=== PATIENT | female | born 1980 | race American Indian/Alaskan Native ===

== ENCOUNTER 2016-11-25 13:04 | Emergency (ER) | payer MEDICAID ==
[2016-11-25 13:27] VITALS: BP 137/79; PULSE 86; RESP 16; TEMP 98.9; O2SAT 100
--- NOTE | 2016-11-25 13:56 | ED PDOC ---
HPI: CCC, URI, Sore Throat Time Seen by Provider: 11/25/16 13:33 Chief Complaint (Nursing): Cough, Cold, Congestion Chief Complaint (Provider): Cough, cold, congestion History Per: Patient History/Exam Limitations: no limitations Have you had recent travel within the past 21 days to any of the following countries: [place], [place], [place] or [place]?: No Onset/Duration Of Symptoms: Days (3) Current Symptoms Are (Timing): Still Present Location Of Pain: Throat Sick Contacts (Context): Family Member(s) Associated Symptoms: Sore Throat, Cough. denies: Fever, Chills Additional History Per: Patient Additional Complaint(s): 36yo female, presents to the ED for evaluation of cough, cold and congestion for the past 3 dyas. She also reports a sore throat, present for the past 4 days ; patient states her daughter has been diagnosed with bronchitis and she is concerned she might have been exposed. She denies any associated fever, chills, nausea or vomiting. She offers no additional medical complaints. Past Medical History Reviewed: Historical Data, Nursing Documentation, Vital Signs Vital Signs: Last Vital Signs Temp 98.9 F 11/25/16 13:23 Pulse 86 11/25/16 13:23 Resp 16 11/25/16 13:23 BP 137/79 11/25/16 13:23 Pulse Ox 100 11/25/16 13:59 - Medical History PMH: No Chronic Diseases - Surgical History Surgical History: No Surg Hx - Family History Family History: States: No Known Family Hx - Living Arrangements Living Arrangements: With Family - Social History Current smoker - smoking cessation education provided: No Alcohol: None Drugs: Denies - Home Medications Home Medications: Ambulatory Orders Medication Instructions Recorded Albuterol HFA [Ventolin HFA 90 1 puff IH Q4 PRN #1 unit 10/24/14 mcg/actuation (8 g)] Azithromycin [Zithromax Z-Raul] 250 mg PO DAILY #1 packet 10/24/14 - Allergies Allergies/Adverse Reactions: Allergies Allergy/AdvReac Type Severity Reaction Status Date / Time milk Allergy RASH Verified 11/25/16 13:23 Review of Systems Constitutional: Negative for: Fever, Chills ENT: Positive for: Throat Pain Respiratory: Positive for: Cough, Sputum Gastrointestinal: Negative for: Nausea, Vomiting Physical Exam - Reviewed Nursing Documentation Reviewed: Yes Vital Signs Reviewed: Yes - Physical Exam Appears: Positive for: Non-toxic, No Acute Distress Head Exam: Positive for: ATRAUMATIC, NORMAL INSPECTION, NORMOCEPHALIC Skin: Positive for: Warm Eye Exam: Positive for: Normal appearance ENT: Negative for: Pharyngeal Erythema, Tonsillar Exudate, Tonsillar Swelling Neck: Positive for: Supple Cardiovascular/Chest: Positive for: Regular Rate, Rhythm Respiratory: Positive for: Normal Breath Sounds. Negative for: Rhonchi, Wheezing, Respiratory Distress Neurologic/Psych: Positive for: Alert, Oriented - ECG O2 Sat by Pulse Oximetry: 100 (RA) Pulse Ox Interpretation: Normal Medical Decision Making Medical Decision Making: Time: 1330 Impression: Cough, cold congestion x 3 days Plan: -- Rapid strep Strep (-) Scribe Attestation: Documented by Tova Sterling acting as a scribe for CALIXTO Perez Provider Attestation: All medical record entries made by the Scribe were at my direction and personally dictated by me. I have reviewed the chart and agree that the record accurately reflects my personal performance of the history, physical exam, medical decision making, and the department course for this patient. I have also personally directed, reviewed, and agree with the discharge instructions and disposition. Disposition - Clinical Impression Clinical Impression: Viral illness - Patient ED Disposition Is Patient to be Admitted: No Counseled Patient/Family Regarding: Diagnosis, Need For Followup - Disposition Disposition: Routine/Home Disposition Time: 15:12 Condition: GOOD Instructions: Cold Symptoms (ED) Forms: [employer] (Armenian)
== END 2016-11-25 15:22 | disposition home or self-care (01) ==
LOC: H.ER 13:04
DX: B34.9 Viral infection, unspecified (principal)

== ENCOUNTER 2017-04-03 23:22 | Emergency (ER) | payer MEDICAID ==
[2017-04-03 23:35] VITALS: BP 118/76; PULSE 96; RESP 18; TEMP 98.5; O2SAT 97
--- NOTE | 2017-04-04 00:18 | ED PDOC ---
HPI: General Adult Time Seen by Provider: 04/03/17 23:37 Chief Complaint (Nursing): Cough, Cold, Congestion Chief Complaint (Provider): sore throat, congestion History Per: Patient Additional Complaint(s): 36-year-old female presents to emergency department with sore throat, cough post -tussive vomiting for 2 days. The patient denies any fever or chills. She states that her daughter was recently treated for bronchiolitis. PMD: none Past Medical History Reviewed: Historical Data, Nursing Documentation, Vital Signs Vital Signs: Last Vital Signs Temp 98.5 F 04/03/17 23:31 Pulse 96 H 04/03/17 23:31 Resp 18 04/03/17 23:31 BP 118/76 04/03/17 23:31 Pulse Ox 97 04/04/17 00:50 - Medical History PMH: No Chronic Diseases - Surgical History Other surgeries: breast augmentation, norwegian butt lift - Family History Family History: States: No Known Family Hx - Living Arrangements Living Arrangements: With Family - Social History Current smoker - smoking cessation education provided: No Alcohol: None Drugs: Denies - Home Medications Home Medications: Ambulatory Orders Medication Instructions Recorded Albuterol HFA [Ventolin HFA 90 1 puff IH Q4 PRN #1 unit 10/24/14 mcg/actuation (8 g)] Azithromycin [Zithromax Z-Raul] 250 mg PO DAILY #1 packet 10/24/14 Albuterol HFA [Ventolin HFA 90 1 puff IH ASDIR #1 unit 04/04/17 mcg/actuation (8 g)] Azithromycin [Zithromax] 250 mg PO DAILY #6 tab 04/04/17 Benzonatate 200 mg PO TID PRN #20 capsule 04/04/17 - Allergies Allergies/Adverse Reactions: Allergies Allergy/AdvReac Type Severity Reaction Status Date / Time milk Allergy RASH Verified 11/25/16 13:23 Review of Systems ROS Statement: Except As Marked, All Systems Reviewed And Found Negative Constitutional: Negative for: Fever, Chills Cardiovascular: Negative for: Chest Pain Respiratory: Positive for: Cough Gastrointestinal: Positive for: Vomiting (post-tussive) Physical Exam - Reviewed Nursing Documentation Reviewed: Yes Vital Signs Reviewed: Yes - Physical Exam Appears: Positive for: Well, Non-toxic, No Acute Distress Skin: Negative for: Rash Eye Exam: Positive for: Normal appearance ENT: Positive for: TM Is/Are (normal bilaterally), Pharyngeal Erythema, Tonsillar Swelling. Negative for: Nasal Congestion Cardiovascular/Chest: Positive for: Regular Rate, Rhythm Respiratory: Positive for: Rhonchi (scattered bilaterally), Other (moderate coughing during exam) Gastrointestinal/Abdominal: Positive for: Soft. Negative for: Tenderness Neurologic/Psych: Positive for: Alert, Oriented - Laboratory Results Urine POC: Negative - ECG O2 Sat by Pulse Oximetry: 97 Pulse Ox Interpretation: Normal - Other Rad CXR X-Ray: Interpreted by Me, Viewed By Me X-Ray Interpretation: no acute finding Nebulizer Treatments/Peak Flow - Duonebs Number of Bronchodilator Doses given?: 1 (duoneb) Medical Decision Making Medical Decision Makin36 year old with sore throat and cough Plan: test Flu swab Rapid strep Duoneb x 1 motrin PO Flu and strep are negative. Patient given rx for zithromax, tessalon perles and ventolin inhaler. Patient was instructed to follow up with PMD in 2-3 days. Disposition - Clinical Impression Clinical Impression: Bronchitis - Patient ED Disposition Is Patient to be Admitted: No Counseled Patient/Family Regarding: Studies Performed, Diagnosis, Need For Followup, Rx Given - Disposition Referrals: [facility] [Outside] Disposition: Routine/Home Disposition Time: 02:18 Condition: STABLE Additional Instructions: Take prescription medications as directed. Follow up with primary doctor in 2-3 days. Prescriptions: Albuterol HFA [Ventolin HFA 90 mcg/actuation (8 g)] 1 puff IH ASDIR #1 unit Azithromycin [Zithromax] 250 mg PO DAILY #6 tab Benzonatate 200 mg PO TID PRN #20 capsule PRN Reason: Cough Instructions: Acute Bronchitis (ED) Forms: [employer] (Grenadian)
[2017-04-04] MEDS ORDERED: Albuterol-Ipratrop 3 mg / 0.5 (3 ml) UD INH STA (00:43)
[2017-04-04] MEDS ORDERED: Ipratropium 0.02% Inhal Soln (0.5 mg/2.5 ml) UD IH ONE (00:56)
[2017-04-04] MEDS ORDERED: Albuterol 0.083% Inhal Sol (2.5 mg/3 mL) UD ONE (00:56)
--- NOTE | 2017-04-04 09:23 | RAD ---
HISTORY: cough COMPARISON: Comparison made with prior study 10/24/2014 TECHNIQUE: Chest PA and lateral FINDINGS: LUNGS: No active pulmonary disease. PLEURA: No significant pleural effusion identified. No pneumothorax apparent. CARDIOVASCULAR: Normal. OSSEOUS STRUCTURES: Minor multilevel degenerative spondylosis of the thoracic spine. VISUALIZED UPPER ABDOMEN: Normal. OTHER FINDINGS: None. IMPRESSION: No active disease.
== END 2017-04-04 02:36 | disposition home or self-care (01) ==
LOC: H.ER 23:22
DX: J40 Bronchitis, not specified as acute or chronic (principal)